=== PATIENT | female | born 1955 | race Caucasian/White ===

== ENCOUNTER → 2016-07-05 | Outpatient (CLI) | payer OTHER | LOC: BMCIMAGING 13:15 | PROVIDERS: ATTEND Family Medicine | DX: Z12.31 Encounter for screening mammogram for malignant neoplasm of breast (principal); Z80.3 Family history of malignant neoplasm of breast | CPT/HCPCS: G0202 ==

== ENCOUNTER 2017-03-23 10:34 | Day surgery (SDC) | payer OTHER ==
[2017-03-23] MEDS ORDERED: LR 1,000 ML IV ONE (10:59)
[2017-03-23] MEDS ORDERED: LIDOCAINE 1% 2 ML INJ ID PRN (10:59)
--- NOTE | 2017-03-23 11:19 | CPEKG ---
Heart Rate: 65 RR Interval: 923 P-R Interval: 164 QRSD Interval: 92 QT Interval: 440 QTC Interval: 458 P [place]: 62 QRS [place]: -5 T Wave [place]: 13 EKG Severity - NORMAL ECG - EKG Impression: SINUS RHYTHM Electronically Signed By: Renzo Caputo 24-Mar-2017 08:27:31
--- NOTE | 2017-03-23 11:51 | PDGENHP ---
History & Physical Chief Complaint: dysphagia History of Present Illness: Post CVA, poor swallow. Pt refused colonoscopy today due to refused prep Pertinent Past, Social, Family History: GERD sxm and dysphagia. Post CVA poor mobility Relevant Physical Exam: CV rrr s1s2 nl. chest CTA. Abd + bs Cardiorespiratory Assessment: asa III
--- NOTE | 2017-03-23 12:15 | PDANEPAE ---
ANE History of Present Illness acid reflux ANE Past Medical History - Cardiovascular History Hx Hypertension: Yes Hx Arrhythmias: No Hx Chest Pain: No Hx Coronary Artery / Peripheral Vascular Disease: No Hx CHF / Valvular Disease: No Hx Palpitations: No Cardiovascular History Comment: HYPERLIPIDEMIA - Pulmonary History Hx COPD: No Hx Asthma/Reactive Airway Disease: No Hx Recent Upper Respiratory Infection: No Hx Oxygen in Use at Home: No Hx Sleep Apnea: No Sleep Apnea Screening Result - Last Documented: Negative - Neurologic History Hx Cerebrovascular Accident: Yes Hx Seizures: No Hx Dementia: No Neurologic History Comment: BRAIN STEM STROKE SYNDROME - 1982. CEREBRAL DEGENERATION - Endocrine History Hx Diabetes: No Endocrine History Comment: HYPOTHYROID - NO MEDS - Renal History Hx Renal Disorders: Yes Renal History Comment: UTI RECURRENT. NEUROGENIC BLADDER - Neurological & Psychiatric Hx Hx Neurological and Psychiatric Disorders: No - Cancer History Hx Cancer: No - Congenital Disorder History Hx Congenital Disorders: No - GI History Hx Gastrointestinal Disorders: Yes Gastrointestinal History Comment: CONSTIPATION - Other Health History Other Health History: OSTEOPOROSIS - Chronic Pain History Chronic Pain: No - Surgical History Prior Surgeries: TRACHEOSTOMY ANE Review of Systems Review of Systems: - Exercise capacity METS (RN): 1 METS ANE Patient History - Allergies Allergies/Adverse Reactions: erythromycin lactobionate [From Erythrocin] Allergy (Intermediate, Verified 09/24 12:16) Unknown - Home Medications Home Medications: Amitriptyline HCl [Elavil 10 mg (RX)] 30 mg PO HS 01/20/12 [Last Taken 03/22/17] Herbals/Supplements -Info Only 1 each PO AD 01/20/12 [Last Taken 03/22/17] [place]-3 Fatty Acids [Fish Oil 1000 mg (OTC)] 1,000 mg PO DAILY 01/20/12 [Last Taken 03/22/17] Oxybutynin Chloride Xl [Ditropan Xl 5mg (RX)] 10 mg PO HS 01/20/12 [Last Taken 03/22/17] Oxybutynin Chloride [Ditropan 5mg (RX)] 10 mg PO HS 01/20/12 [Last Taken ] Losartan Potassium [Cozaar] 25 mg PO 10/20/12 [Last Taken 03/22/17] Aspirin 03/22/17 [Last Taken 03/22/17] Crestor 03/22/17 [Last Taken 03/22/17] Forteo 03/22/17 [Last Taken 03/22/17] - NPO status NPO Since - Liquids (Date): 03/23/17 NPO Since - Liquids (Time): 09:00 NPO Since - Solids (Date): 03/22/16 NPO Since - Solids (Time): 21:30 - Smoking Hx Smoking Status: Never smoked - Family Anes Hx Family Hx Anesthesia Complications: UNK ANE Labs/Vital Signs - Vital Signs Blood Pressure: 153/91 Heart Rate: 61 Respiratory Rate: 16 O2 Sat (%): 95 Height: 157.48 cm Weight: 58.06 kg ANE Physical Exam - Airway Neck exam: FROM Mallampati Score: Class 2 Mouth exam: normal dental/mouth exam - Pulmonary Pulmonary: no respiratory distress - Cardiovascular Cardiovascular: regular rate and rhythym - ASA Status ASA Status: III ANE Anesthesia Plan Total IV Anesthesia: Yes
[2017-03-23] MEDS ORDERED: PROPOFOL 200 MG/20 ML VIAL ONE ×2 (12:19)
[2017-03-23] MEDS ORDERED: NALOXONE HCL 0.4 MG/ML INJ IVP PRN (12:32)
--- NOTE | 2017-03-23 12:44 | POSTANESTH ---
Post Anesthetic Evaluation Cardiovascular Status: Normal, Stable Respiratory Status: Normal, Stable Level of Consciousness/Mental Status: Can Participate in Eval Pain Control: Adequate, Prn Tx Ordered Nausea/Vomiting Control: Adequate, Prn Tx Ordered Complications Possibly Related to Anesthesia: None Noted
--- NOTE | 2017-03-23 12:45 | GIREPORT ---
[facility] - Endoscopy Department Patient Name: Donna Cintron Procedure Date: 03/23/2017 12:26 PM Patient Type: Outpatient Attending MD/ ER Physician: Kelsy Clay MD Procedure: Upper GI endoscopy Indications: Dysphagia, Heartburn Providers: Kelsy Clay MD Medicines: Monitored Anesthesia Care Complications: No immediate complications. Description of Procedure: After obtaining informed consent, the endoscope was passed under direct vision. Throughout the procedure, the patient's blood pressure, pulse, and oxygen saturations were monitored continuously. The Endoscope was intro duced through the mouth, and advanced to the second part of duodenum. The [facility] er GI endoscopy was accomplished without difficulty. The patient tolerated th e procedure well. Findings: LA Grade A (one or more mucosal breaks less than 5 mm, not extending be tween tops of 2 mucosal folds) esophagitis was found at the gastroesophageal junction. The middle third of the esophagus was normal. Biopsies were taken with a cold forceps for histology. Estimated blood loss was minimal. One non-bleeding cratered gastric ulcer with pigmented material was fou nd in the gastric body. The lesion was 5 mm in largest dimension. Biopsies we re taken with a cold forceps for histology. Estimated blood loss was minim al. Patchy mildly erythematous mucosa without bleeding was found in the gas tric antrum. Biopsies were taken with a cold forceps for histology. Estimate d blood loss was minimal. The examined duodenum was normal. Estimated Blood Loss: Estimated blood loss was minimal. Post Op Diagnosis: - LA Grade A reflux esophagitis. - Normal middle third of esophagus. Biopsied. - Non-bleeding gastric ulcer with pigmented material. Biopsied. - Erythematous mucosa in the antrum. Biopsied. - Normal examined duodenum. Recommendation: - Await pathology results. - Patient has a contact number available for emergencies. The signs and symptoms of potential delayed complications were discussed with the pat ient. Return to normal activities tomorrow. Written discharge instructions we re provided to the patient. - Resume previous diet. - Continue present medications. - Use Prilosec OTC 20 mg PO daily for 12 weeks. - Limit NSAIDS, cardiac aspirin OK. - Consider repeat EGD vs UGI in 3 moths to check healing. - Suggest patient consider Cologuard for colon cancer screening due to can not take prep. Wait until ulcer is healed to avoid false positive test. - Return to GI clinic in 3 months. - Discharge patient to home. - Thank you for allowing me to participate in the care of your patient. Attending Participation: I personally performed the entire procedure. Kelsy Clay MD Kelsy Clay MD 03/23/2017 12:44:52 PM This report has been signed electronicallyKelsy Clay MD Number of Addenda: 0 Note Initiated On: 03/23/2017 12:26 PM [email or web address]
[2017-03-23 12:59] VITALS: TEMP 97.3
[2017-03-23 13:10] VITALS: O2SAT 97
[2017-03-23 13:14] VITALS: BP 123/84; PULSE 55; RESP 16
== END 2017-03-23 14:23 | disposition home or self-care (01) ==
LOC: FSGY 10:34
PROVIDERS: ATTEND Internal Medicine Gastroenterology
PROC: 0DB68ZX Excision of Stomach, Via Natural or Artificial Opening Endoscopic, Diagnostic (ICD-10-PCS; principal; 2017-03-23 12:00)
PROC: 0DB28ZX Excision of Middle Esophagus, Via Natural or Artificial Opening Endoscopic, Diagnostic (ICD-10-PCS; principal; 2017-03-23 12:00)
DX: K21.0 Gastro-esophageal reflux disease with esophagitis (principal); K25.9 Gastric ulcer, unspecified as acute or chronic, without hemorrhage or perforation; E78.5 Hyperlipidemia, unspecified; E03.9 Hypothyroidism, unspecified; M81.0 Age-related osteoporosis without current pathological fracture; Z87.440 Personal history of urinary (tract) infections
CPT/HCPCS: J2704

== ENCOUNTER → 2017-07-18 | Outpatient (CLI) | payer OTHER | LOC: BMCIMAGING 12:52 | PROVIDERS: ATTEND Family Medicine | DX: Z12.31 Encounter for screening mammogram for malignant neoplasm of breast (principal); Z80.3 Family history of malignant neoplasm of breast ==

== ENCOUNTER → 2018-03-30 | Outpatient (CLI) | payer OTHER | LOC: BMCIMAGING 14:53 | PROVIDERS: ATTEND Family Medicine | DX: J98.4 Other disorders of lung (principal); J98.11 Atelectasis ==

== ENCOUNTER → 2018-08-02 | Outpatient (CLI) | payer OTHER | LOC: BMCIMAGING 12:11 ==